=== PATIENT | male | born 1990 | race African-American/Black ===

== ENCOUNTER 2019-03-25 17:11 | Emergency (ER) | payer BC ==
[~2019-03-25] VITALS: Ht 172.7 cm; Wt 108.9 kg
[2019-03-25 17:11] VITALS: BP 146/88
--- NOTE | 2019-03-25 17:50 | NUR ---
Patient discharged to home in stable condition. Written and verbal after care instructions given. Patient verbalizes understanding of instruction.
== END 2019-03-25 17:50 | disposition home or self-care (01) ==
LOC: ER 17:13
DX: F25.9 Schizoaffective disorder, unspecified (principal); I10 Essential (primary) hypertension